=== PATIENT | male | born 1985 | race Two or more races ===

== ENCOUNTER 2025-01-28 12:59 | Emergency (ER) | payer MEDICAID, OTHER ==
[~2025-01-28] VITALS: Ht 177.8 cm; Wt 122.0 kg
--- NOTE | 2025-01-28 13:23 | ED.PDOC ---
History of Present Illness HPI Comments 39-year-old male came to the ER stating that he has been having chest pain which started last night progressively getting worse to this morning. He went to [facility] when chest pain increased in intensity. Mostly in the mid chest no radiation to the back or to the jaw. Chest pain associated with shortness a br eath. History of anxiety. Heart rate 118. Denies any other symptoms. Chief Complaint: Chest Pain Time Seen by MD: 13:07 Reviewed Notes: Nurses Notes, Medications, Allergies Allergies: Coded Allergies: NO KNOWN ALLERGIES (Unverified , 01/28/25) Information Source: Patient, Emergency Med Personnel Mode of Arrival: Ambulatory Severity: Moderate Timing: Days Duration: Since onset Past Medical History PAST MEDICAL HISTORY: Anxiety Surgical History: Denies all surgeries Social History Smoker: Non-Smoker Alcohol: Denies ETOH Use Drugs: Denies Drug Use Constitutional: denies: chills, diaphoresis, fatigue, fever, malaise, sweats, weakness, others EENTM: denies: blurred vision, double vision, ear bleeding, ear discharge, ear drainage, ear pain, ear ringing, eye pain, eye redness, hearing loss, mouth pain, mouth swelling, nasal discharge, nose bleeding, nose congestion, nose pain, photophobia, tearing, throat pain, throat swelling, voice changes, others Respiratory: denies: cough, hemoptysis, orthopnea, SOB at rest, shortness of breath, SOB with excertion, stridor, wheezing, others Cardiovascular: reports: chest pain; denies: dizzy spells, diaphoresis, Dyspnea on exertion, edema, irregular heart beat, left arm pain, lightheadedness, palpitations, PND, syncope, others Gastrointestinal: denies: abdomen distended, abdominal pain, blood streaked bowels, constipated, diarrhea, dysphagia, difficulty swallowing, hematemesis, melena, nausea, poor appetite, poor fluid intake, rectal bleeding, rectal pain, vomiting, others Genitourinary: denies: burning, dysuria, flank pain, frequency, hematuria, incontinence, penile discharge, penile sore, pain, testicle pain, testicle swe lling, urgency, others Neurological: denies: dizziness, fainting, headache, left sided numbness, left sided weakness, numbness, paresthesia, pre-existing deficit, right sided numbness, right sided weakness, seizure, speech problems, tingling, tremors, weakness, others Musculoskeletal: denies: back pain, gout, joint pain, joint swelling, muscle pain, muscle stiffness, neck pain, others Integumetry: denies: bruises, change in color, change in hair/nails, dryness, laceration, lesions, lumps, rash, wounds, others Allergic/Immunocompromised: denies: Difficulty Healing, Frequent Infections, Hives, Itching, others Hematologic/Lymphatic: denies: anemia, blood clots, easy bleeding, easy bruising, swollen glands, others Endocrine: denies: excessive hunger, excessive sweating, excessive thirst, excessive urination, flushing, intolerance to cold, intolerance to heat, unexplained weight gain, unexplained weight loss, others Psychiatric: denies: anxiety, bipolar disorder, depression, hopeless, panic disorder, schizophrenia, sleepless, suicidal, others Physical Exam General Appearance: Moderate Distress HEENT: Normal ENT Inspection, Pharynx Normal, TMs Normal Neck: Full Range of Motion, Non-Tender, Normal, Normal Inspection Respiratory: Chest Non-Tender, Lungs Clear, No Accessory Muscle Use, No Respiratory Distress, Normal Breath Sounds Cardiovascular: Tachycardia Breast Exam: Deferred Gastrointestinal: No Organomegaly, Non Tender, No Pulsatile Mass, Normal Bowel Sounds, Soft Genitalia: Deferred Pelvic: Deferred Rectal: Deferred Extremities: No calf tenderness, Normal capillary refill, Normal inspection, Normal range of motion, Non-tender, No pedal edema Musculoskeletal : Apperance: Normal Neurologic: Alert, 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 Was a procedure done?: No EKG EKG : Pulse Rate (adult): 118 Cardiac Rhythm: ST Differential Dx Considerations may include: Chest pain Electrolyte imbalance X-Ray, Labs, Meds, VS Vital Signs Date Time Temp Pulse Resp B/P (MAP) Pulse Ox O2 Delivery O2 Flow Rate FiO2 01/28/25 14:14 104 01/28/25 13:23 118 01/28/25 12:59 97.6 116 18 123/106 100 97.6 Lab Test 01/28/25 14:19 01/28/25 13:23 Range/Units Troponin I High Sensitivity 3 L < 3 L </=54 ng/L White Blood Count 11.7 H 4.4-10.8 10^3/uL Red Blood Count 5.11 4.5-5.90 10^6/uL Hemoglobin 15.3 13.5-17.5 g/dL Hematocrit 44.0 41.0-53.0 % Mean Corpuscular Volume 86.0 80.0-100.0 fL Mean Corpuscular Hemoglobin 30.0 28.0-32.0 pg Mean Corpuscular Hemoglobin Concent 34.8 32.0-36.0 g/dL Red Cell Distribution Width 14.7 H 11.8-14.3 % Platelet Count 352 140-450 10^3/uL Mean Platelet Volume 6.9 6.9-10.8 fL Neutrophils (%) (Auto) 57.6 37.0-80.0 % Lymphocytes (%) (Auto) 29.6 10.0-50.0 % Monocytes (%) (Auto) 10.8 0.0-12.0 % Eosinophils (%) (Auto) 1.4 0.0-7.0 % Basophils (%) (Auto) 0.6 0.0-2.0 % Neutrophils # (Auto) 6.8 1.6-8.6 10 ^3/uL Lymphocytes # (Auto) 3.5 0.4-5.4 10 ^3/uL Monocytes # (Auto) 1.3 0-1.3 10 ^3/uL Eosinophils # (Auto) 0.2 0-0.8 10 ^3/uL Basophils # (Auto) 0.1 0-0.2 10 ^3/uL Nucleated Red Blood Cells 0.1 % Sodium Level 143 136-145 mmol/L Potassium Level 4.0 3.5-5.1 mmol/L Chloride Level 105 98-107 mmol/L Carbon Dioxide Level 28 20-31 mmol/L Anion Gap 10 5-15 Blood Urea Nitrogen 19 9-23 mg/dL Creatinine 1.04 0.700-1.30 mg/dL Glomerular Filtration Rate Calc 93 >90 mL/min BUN/Creatinine Ratio 18.3 10.0-20.0 Serum Glucose 96 74-106 mg/dL Calcium Level 9.8 8.7-10.4 mg/dL Patient alert. Complaining of chest pain. Vitals stable. Answering questions. EKG reviewed shows sinus tachycardia. He is anxious. Complaining of shortness a breath. Lungs clear. Was given aspirin. Was given nitro. Possibly need echocardiogram. Explained to the patient. Continue to monitor. Time of 1ST Reevaluation: 13:22 Reevaluation 1ST: Unchanged Patient Education/Counseling: Diagnosis, Treatment, Prognosis Family Education/Counseling: No Family Present SEPSIS Sepsis Screen Physician Orders Electrocardigram (01/28/25 14:06) Electrocardigram (01/28/25 16:06) Vital Signs Date Time Temp Pulse Resp B/P (MAP) Pulse Ox O2 Delivery O2 Flow Rate FiO2 01/28/25 14:14 104 01/28/25 13:23 118 01/28/25 12:59 97.6 116 18 123/106 100 97.6 Laboratory Tests Test 01/28/25 13:23 White Blood Count 11.7 10^3/uL (4.4-10.8) H Departure 1 Departure Time of Disposition: 13:23 Impression: Primary Impression: Chest pain of unknown etiology Additional Impression: Tachycardia Disposition: 09 ADMITTED INPATIENT Admit to: Med Surg Condition: Guarded Critical Care Note Critical Care Time?: Yes (90 min-critical care time only) Critical care comment: Continues to have chest pain Stability Stability form required: No Heart Score Heart Score: Heart Score Response (Comments) Value History Slightly Suspicious 0 EKG Normal 0 Age <45 0 Risk Factors No known risk factors 0 Troponin Normal limit 0 Total 0 TRAE WESTBROOK MD Jan 28, 2025 13:23
[2025-01-28 13:39] LABS: Hematocrit 44.0 % (41.0-53.0); Hemoglobin 15.3 g/dL (13.5-17.5); Mean Corpuscular Hemoglobin 30.0 pg (28.0-32.0); Mean Corpuscular Volume 86.0 fL (80.0-100.0); Nucleated Red Blood Cells % 0.1 %
[2025-01-28 13:48] LABS: Chloride 105 mmol/L (98-107); Potassium 4.0 mmol/L (3.5-5.1); Sodium 143 mmol/L (136-145)
[2025-01-28 13:49] LABS: Anion Gap 10 (5-15); Carbon Dioxide 28 mmol/L (20-31)
[2025-01-28 13:50] LABS: Calcium 9.8 mg/dL (8.7-10.4)
[2025-01-28 13:55] LABS: BUN/Creatinine Ratio 18.3 (10.0-20.0); Blood Urea Nitrogen 19 mg/dL (9-23); Glucose 96 mg/dL (74-106)
--- NOTE | 2025-01-28 14:15 | ECG ---
[facility] Test Date: 2025-01-28 Test Time: 14:14:27 Pat Name: OCTAVIO ROSALES Department: ED Room: Gender: M Instrument Repair Specialist: AMAN : 1985 Requested By: TRAE WESTBROOK Order Number: [id number] Reading MD: Mahesh Kirkpatrick Measurements Intervals [place] Rate: 104 P: 64 [place]: 111 QRS: 65 QRSD: 83 T: -7 QT: 326 QTc: 429 Interpretive Statements Sinus tachycardia Low voltage, precordial leads Borderline T abnormalities, inferior leads Electronically Signed On 01-29-2025 22:08:05 PDT by Mahesh Kirkpatrick Please click the below link to view image of tracing.
[2025-01-28 20:00] VITALS: BP 145/89; TEMP 98
[2025-01-28] MEDS: SODIUM CHLORIDE 0.9% 1,000 ML IV ONE (20:30)
[2025-01-28] MEDS: NITROGLYCERIN 0.4 MG SL TAB SL ONE (20:31)
[2025-01-28] MEDS: LORazepam 2MG/ML-1ML VIAL IV ONE (20:32)
[2025-01-28 20:37] VITALS: PULSE 94; RESP 15; O2SAT 97
--- NOTE | 2025-01-28 23:20 | DVHHPRES ---
History of Present Illness Resident Creating Document: CANDY CANELA RESIDENT History of Present Illness Indra Mills is a 39 yo male came with past medical history of generalized anxiety disorder. The patient came to the ED with the chief complain of 1 day of pressure-like chest pain which started last night progressively getting worse to this morning, localized in the mid chest associated with shortness a breath. First time episode, no related to activity. Denies palpitation, fever, sweats, nausea, vomit or any other symptoms. During interview the patient states that he wants to leave the Emergency Department Against Medical Advice (AMA). Patient encouraged to stay for further t reatment/stabilization. Patient advised of the risks of leaving AMA. Patient verbalized understanding. Patient encouraged to return to the ER if symptoms do not improve or worsen. Patient denies further questioning or physical examination. Dr. Rogers was informed. Cardiovascular: Other ((Cannot be confirmed, patient left AMA)) Past Medical History (Cannot be confirmed, patient left AMA) Past Surgical History: Other ((Cannot be confirmed, patient left AMA)) Family History (Cannot be confirmed, patient left AMA) Past Social History (Cannot be confirmed, patient left AMA) Review of Systems Review of Systems (Cannot be confirmed, patient left AMA) Allergies: Coded Allergies: NO KNOWN ALLERGIES (Unverified , 01/28/25) Medications (Cannot be confirmed, patient left AMA) Exam Vital Signs Vital Signs Date Time Temp Pulse Resp B/P (MAP) Pulse Ox O2 Delivery O2 Flow Rate FiO2 01/28/25 20:37 94 15 97 Room Air* 0 21 01/28/25 20:00 98.0 145/89 (107) 98.0 Exam (Cannot be confirmed, patient left AMA) Labs/Xrays Labs Test 01/28/25 14:19 01/28/25 13:23 Range/Units Troponin I High Sensitivity 3 L </=54 ng/L White Blood Count 11.7 H 4.4-10.8 10^3/uL Red Blood Count 5.11 4.5-5.90 10^6/uL Hemoglobin 15.3 13.5-17.5 g/dL Hematocrit 44.0 41.0-53.0 % Mean Corpuscular Volume 86.0 80.0-100.0 fL Mean Corpuscular Hemoglobin 30.0 28.0-32.0 pg Mean Corpuscular Hemoglobin Concent 34.8 32.0-36.0 g/dL Red Cell Distribution Width 14.7 H 11.8-14.3 % Platelet Count 352 140-450 10^3/uL Mean Platelet Volume 6.9 6.9-10.8 fL Neutrophils (%) (Auto) 57.6 37.0-80.0 % Lymphocytes (%) (Auto) 29.6 10.0-50.0 % Monocytes (%) (Auto) 10.8 0.0-12.0 % Eosinophils (%) (Auto) 1.4 0.0-7.0 % Basophils (%) (Auto) 0.6 0.0-2.0 % Neutrophils # (Auto) 6.8 1.6-8.6 10 ^3/uL Lymphocytes # (Auto) 3.5 0.4-5.4 10 ^3/uL Monocytes # (Auto) 1.3 0-1.3 10 ^3/uL Eosinophils # (Auto) 0.2 0-0.8 10 ^3/uL Basophils # (Auto) 0.1 0-0.2 10 ^3/uL Nucleated Red Blood Cells 0.1 % Sodium Level 143 136-145 mmol/L Potassium Level 4.0 3.5-5.1 mmol/L Chloride Level 105 98-107 mmol/L Carbon Dioxide Level 28 20-31 mmol/L Anion Gap 10 5-15 Blood Urea Nitrogen 19 9-23 mg/dL Creatinine 1.04 0.700-1.30 mg/dL Glomerular Filtration Rate Calc 93 >90 mL/min BUN/Creatinine Ratio 18.3 10.0-20.0 Serum Glucose 96 74-106 mg/dL Calcium Level 9.8 8.7-10.4 mg/dL SEPSIS Sepsis Screen Date sepsis recognized/suspect: Jan 28, 2025 Time Sepsis recognized/suspect: 2035 Recent Procedure: No On Antibiotic Therapy: No Respiratory Rate >20: No Heart Rate >90: Yes Temp<36 C (96.8 F) or >38.3 C: No SBP <90 or MAP <65 mmHG: No New Acute Mental Status Change: No Is the patient on CPAP, BIPAP,: No Vital Signs Date Time Temp Pulse Resp B/P (MAP) Pulse Ox O2 Delivery O2 Flow Rate FiO2 01/28/25 20:37 94 15 97 Room Air* 0 21 01/28/25 20:00 98.0 94 15 145/89 (107) 97 98.0 01/28/25 19:06 95 16 153/79 (103) 97 Laboratory Tests Test 01/28/25 13:23 White Blood Count 11.7 10^3/uL (4.4-10.8) H Medications Medications Dose Ordered Sig/Rosa Route Start Time Stop Time Status Last Admin Dose Admin Aspirin 325 mg ONCE ONCE PO 01/28/25 13:15 01/28/25 13:16 DC 01/28/25 20:30 325 MG Sodium Chloride 1,000 ml @ 1,000 mls/hr Q1H ONCE IV 01/28/25 13:15 01/28/25 14:14 DC 01/28/25 20:30 1,000 MLS/HR Assessment/Plan Assessment/Plan Cannot be performed, patient wants to leave AMA and denies any further questioning or evaluations. During interview the patient states that he wants to leave the Emergency Department Against Medical Advice (AMA). Patient encouraged to stay for further treatment/stabilization. Patient advised of the risks of leaving AMA. Patient verbalized understanding. Patient encouraged to return to the ER if symptoms do not improve or worsen. Patient denies further questioning or physical examination. Dr. Rogers was informed. Plan discussed with: Patient Common Visit Codes: [id number] INP/OBS CARE (HIGH) CANDY CANELA RESIDENT Jan 28, 2025 23:20
--- NOTE | 2025-01-28 23:22 | DVHDSRES ---
Discharge Summary Date of Admission Resident Creating Document: CANDY CANELA RESIDENT Chest pain Date of Discharge: Jan 28, 2025 Admitting Diagnosis Chest pain Wounds: No wounds on admission Labs/Diagnostic Data: Laboratory Results Test 01/28/25 14:19 01/28/25 13:23 Troponin I High Sensitivity 3 ng/L (</=54) White Blood Count 11.7 10^3/uL (4.4-10.8) Red Blood Count 5.11 10^6/uL (4.5-5.90) Hemoglobin 15.3 g/dL (13.5-17.5) Hematocrit 44.0 % (41.0-53.0) Mean Corpuscular Volume 86.0 fL (80.0-100.0) Mean Corpuscular Hemoglobin 30.0 pg (28.0-32.0) Mean Corpuscular Hemoglobin Concent 34.8 g/dL (32.0-36.0) Red Cell Distribution Width 14.7 % (11.8-14.3) Platelet Count 352 10^3/uL (140-450) Mean Platelet Volume 6.9 fL (6.9-10.8) Neutrophils (%) (Auto) 57.6 % (37.0-80.0) Lymphocytes (%) (Auto) 29.6 % (10.0-50.0) Monocytes (%) (Auto) 10.8 % (0.0-12.0) Eosinophils (%) (Auto) 1.4 % (0.0-7.0) Basophils (%) (Auto) 0.6 % (0.0-2.0) Neutrophils # (Auto) 6.8 10 ^3/uL (1.6-8.6) Lymphocytes # (Auto) 3.5 10 ^3/uL (0.4-5.4) Monocytes # (Auto) 1.3 10 ^3/uL (0-1.3) Eosinophils # (Auto) 0.2 10 ^3/uL (0-0.8) Basophils # (Auto) 0.1 10 ^3/uL (0-0.2) Nucleated Red Blood Cells 0.1 % Sodium Level 143 mmol/L (136-145) Potassium Level 4.0 mmol/L (3.5-5.1) Chloride Level 105 mmol/L (98-107) Carbon Dioxide Level 28 mmol/L (20-31) Anion Gap 10 (5-15) Blood Urea Nitrogen 19 mg/dL (9-23) Creatinine 1.04 mg/dL (0.700-1.30) Glomerular Filtration Rate Calc 93 mL/min (>90) BUN/Creatinine Ratio 18.3 (10.0-20.0) Serum Glucose 96 mg/dL (74-106) Calcium Level 9.8 mg/dL (8.7-10.4) Other Laboratory Tests 01/28/25 13:23 Brief Hx & Hospital Course: Indra Mills is a 39 yo male came with past medical history of generalized anxiety disorder. The patient came to the ED with the chief complain of 1 day of pressure-like chest pain which started last night progressively getting worse to this morning, localized in the mid chest associated with shortness a breath. First time episode, no related to activity. Denies palpitation, fever, sweats, nausea, vomit or any other symptoms. During interview the patient states that he wants to leave the Emergency Department Against Medical Advice (AMA). Patient encouraged to stay for further treatment/stabilization. Patient advised of the risks of leaving AMA. Patient verbalized understanding. Patient encouraged to return to the ER if symptoms do not improve or worsen. Patient denies further questioning or physical examination. Dr. Rogers was informed. Cardiovascular: Other (Cannot be confirmed, patient left AMA) Past Surgical History: Other (Cannot be confirmed, patient left AMA)) Family History (Cannot be confirmed, patient left AMA) Past Social History (Cannot be confirmed, patient left AMA) Condition at Discharge: Undetermined (Patient went AMA) Final Diagnosis/Problems List Patient went AMA Discharge Disposition: AMA SNF Discharge Will this Physician continue t: No Discharge Instruct/Medications Diet: See Comment Diet comment: Patient went AMA Activity: Activity comment: Patient went AMA Discharge Statement: "Patient was advised to return to the ER or call 911 if any headaches, dizziness, shortness of breath, chest pain, abdominal pain, bleeding, fevers, or worsening of medical condition. Patient went AMA DME Statement: Patient went AMA ASSESSMENT ASSESSMENT Assessment CANDY CANELA RESIDENT Jan 28, 2025 23:22
--- NOTE | 2025-01-30 06:36 | ECG ---
[facility] Test Date: 2025-01-28 Test Time: 13:05:13 Pat Name: OCTAVIO ROSALES Department: ED Room: Gender: Paying Teller: TRINY : 1985 Requested By: TRAE WESTBROOK Order Number: [id number] Reading MD: Mahesh Kirkpatrick Measurements Intervals [place] Rate: 118 P: 56 [place]: 147 QRS: 62 QRSD: 83 T: 9 QT: 315 QTc: 442 Interpretive Statements Sinus tachycardia Electronically Signed On 02-05-2025 17:15:34 PDT by Mahesh Kirkpatrick Please click the below link to view image of tracing.
== END 2025-01-28 21:24 | disposition left against medical advice (07) ==
LOC: ER 12:59
DX: R07.89 Other chest pain (principal); R00.0 Tachycardia, unspecified; F41.9 Anxiety disorder, unspecified
CPT/HCPCS: 36415; 80048; 84484; 85025; 93005; 96360; 99285; J7030